=== PATIENT | male | born 1945 | race Hispanic/Latino ===

== ENCOUNTER 2021-11-28 12:53 | Emergency (ER) | payer SELFPAY ==
[2021-11-28] VITALS (10 sets, daily range): BP systolic 111–157; BP diastolic 70–91
[~2021-11-28] VITALS: Ht 167.6 cm; Wt 76.2 kg
[2021-11-28 13:57] LABS: URINE BILIRUBIN - DIPSTICK NEGATIVE (NEGATIVE); URINE BLOOD DIPSTICK TRACE-INTACT (NEGATIVE); URINE COLOR YELLOW; URINE GLUCOSE - DIPSTICK NEGATIVE (NEGATIVE); URINE KETONE NEGATIVE (NEGATIVE); URINE LEUK ESTERASE NEGATIVE (NEGATIVE); URINE PROTEIN - DIPSTICK NEGATIVE (NEG-TRACE); URINE SPECIFIC GRAVITY 1.025; URINE UROBILINOGEN - DIPSTICK 0.2 E.U./dL (0.2)
[2021-11-28 13:58] LABS: HEMATOCRIT 39.3 % (39.0-50.0); HEMOGLOBIN 13.2 g/dl (14.0-18.0); IMMATURE GRANULOCYTES 0.3 % (0.0-5.0); MEAN CELL VOLUME 92.5 fL CALC (80.0-100.0); MEAN CORPUSCULAR HGB 31.1 pG CALC (26.0-32.0); MEAN CORPUSCULAR HGB CONC 33.6 g/dL CAL (32.0-36.0); NEUT# 8.16 thou/uL (1.82-7.42); RED BLOOD COUNT 4.25 mill/uL (4.70-6.10); RED CELL DISTRI WIDTH 13.7 % (11.5-15.5)
[2021-11-28 13:59] LABS: URINE NITRITE - DIPSTICK NEGATIVE (Negative)
[2021-11-28 14:17] LABS: ALBUMIN 3.5 g/dL (3.2-5.0); BILIRUBIN, TOTAL 0.8 mg/dL (0.0-1.4); CREATININE 2.2 mg/dL (0.7-1.3); POTASSIUM 4.3 mmol/l (3.5-5.1); TOTAL PROTEIN 6.5 g/dL (6.3-8.2)
== END 2021-11-28 18:30 | disposition home or self-care (01) | DRG 726 ==
LOC: ED 12:53
PROVIDERS: Family Medicine
PROC: 0T9B70Z Drainage of Bladder with Drainage Device, Via Natural or Artificial Opening (ICD-10-PCS; principal; 2021-11-28)
DX: N40.1 Benign prostatic hyperplasia with lower urinary tract symptoms (principal); R39.11 Hesitancy of micturition; I10 Essential (primary) hypertension
CPT/HCPCS: Q9967

== ENCOUNTER 2021-12-06 15:54 | Emergency (ER) | payer SELFPAY ==
[~2021-12-06] VITALS: Ht 167.6 cm; Wt 76.3 kg
[2021-12-06] VITALS (7 sets, daily range): BP systolic 111–137; BP diastolic 65–80
[2021-12-06 17:12] LABS: URINE BILIRUBIN - DIPSTICK NEGATIVE (NEGATIVE); URINE BLOOD DIPSTICK LARGE (NEGATIVE); URINE COLOR BROWN; URINE GLUCOSE - DIPSTICK NEGATIVE (NEGATIVE); URINE KETONE NEGATIVE (NEGATIVE); URINE PROTEIN - DIPSTICK >=300 mg/dL (NEG-TRACE); URINE SPECIFIC GRAVITY >=1.030
[2021-12-06 17:14] LABS: URINE LEUK ESTERASE MODERATE (NEGATIVE); URINE NITRITE - DIPSTICK POSITIVE (Negative)
[2021-12-06 17:21] LABS: URINE RBC TNTC RBC/hpf (0-5); URINE WBC TNTC WBC/hpf (0-5)
[2021-12-06] MEDS ORDERED: PHENAZOPYRIDIN100 M1 PO (17:26)
[2021-12-06] MEDS ORDERED: KEFLEX500 MG PO (17:26)
--- NOTE | 2021-12-08 10:12 | NUR ---
NEW RX FOR CEFDINIR 300MG PO BID X7 DAYS CALLED IN TO [facility]. SPOKE WITH KENDRA YOUNG (NEXT OF KIN/LACE SEWER) PT DOES NOT SPEAK WELSH. EXPLAINED NEED FOR NEW ABX. INSTRUCTED TO STOP CEPHALEXIN AND START CEFDINIR. KENDRA VERBALIZED UNDERSTANDING.
== END 2021-12-06 17:56 | disposition home or self-care (01) | DRG 690 ==
LOC: ED 15:54
PROVIDERS: Nurse Practitioner
DX: N39.0 Urinary tract infection, site not specified (principal); R33.9 Retention of urine, unspecified; I10 Essential (primary) hypertension; B96.20 Unspecified Escherichia coli [E. coli] as the cause of diseases classified elsewhere; Z96.0 Presence of urogenital implants

== ENCOUNTER 2022-01-11 10:59 | Observation (INO) | payer SELFPAY ==
[~2022-01-11] VITALS: Ht 167.6 cm; Wt 74.8 kg
[~2022-01-11 10:59] MED LIST: CYMBALTA30 MG PO; KEFLEX500 MG PO; NAPROXEN375 MG PO; OMNI-PAC300 MG PO; PHENAZOPYRIDIN100 M1 PO; TAMSULOSIN HCL0.4 MG PO
--- NOTE | 2022-01-11 16:51 | NUR ---
PT ARRIVED ON UNIT @ 1426 TRANSPORTED VIA WC BY PACU STAFF THEN TRANSFERRED TO BED. ALERT AND ORIENTED, C/O ABD PAIN @ 03/18, CBI IN PROGRESS WITH ISRAEL RED-PINK DRAINAGE, DRAINAGE BAG SECURED FIRMLY TO RIGHT LEG, ORIENTED TO ROOM AND CALL ROGER, IVF INFUSING, SET UP FOR VITAL SIGNS MEASURING, SON AT BEDSIDE, SENIOR SAS PROGRAMMER NEEDED AND STAFF MEMBER PLAYED ROLE, WILL CONTINUE TO MONITOR.
[2022-01-11 17:31] VITALS: BP 153/85
--- NOTE | 2022-01-11 18:26 | NUR ---
PT VOMITTING AT THIS TIME, NO ANTIEMETIC ON ORDER OF NOW, DR CAROLINA NOTIFIED AND SAID HE WILL PLACE ORDERS.
[2022-01-11 18:53] VITALS: BP 146/76
[2022-01-11 19:00] VITALS: BP 146/76
--- NOTE | 2022-01-11 20:00 | NUR ---
PHYSICAL ASSESMENT COMPLETE. PT CURRENTLY DENIES PAIN OR DISCOMFORT. SCHEDULED MEDICATIONS AND PRN MEDICATION ADMINISTERED, SEE E-MAR. PT DENIES ANY NEEDS AT THIS TIME. TURP IRRIGATION RUNNING TO GRAVITY. PLAN OF CARE REVIEWED, PT DENIES QUESTIONS, VERBALIZES UNDERSTANDING. ITEMS WITHIN REACH, BED LOCKED IN LOW POSITION W/ BEDRAILS UP X2. CALL ROGER WITHIN REACH, AGREES TO CALL PRN.
--- NOTE | 2022-01-12 | NUR ---
RESTING IN BED WITH EYES CLOSED; NO APPARENT DISTRESS NOTED; TRIPLE LUMEN CATHETER RITCHIE DRAINING TO GRAVITY; NO COMPLAINTS OF PAIN; CALL LIGHT WITHIN REACH.
--- NOTE | 2022-01-12 03:57 | NUR ---
PT RESTING IN BED, NO SIGNS OF DISTRESS NOTED, RESP EVEN AND UNLABORED. PT VOICES NO NEEDS OR COMPLAINTS AT THIS TIME. TURP/IRRIAGATION CONTINUES. OUTPUT IS PRESENTLY PEACHED COLORED. CALL LIGHT WITHIN REACH.
[2022-01-12 04:00] VITALS: BP 133/76
[2022-01-12 04:41] VITALS: BP 133/76
[2022-01-12 05:47] LABS: HEMATOCRIT 36.6 % (39.0-50.0); IMMATURE GRANULOCYTES 0.2 % (0.0-5.0); MEAN CELL VOLUME 95.6 fL CALC (80.0-100.0); MEAN CORPUSCULAR HGB 31.3 pG CALC (26.0-32.0); MEAN CORPUSCULAR HGB CONC 32.8 g/dL CAL (32.0-36.0); NEUT# 6.91 thou/uL (1.82-7.42); RED BLOOD COUNT 3.83 mill/uL (4.70-6.10); RED CELL DISTRI WIDTH 13.3 % (11.5-15.5)
[2022-01-12 06:46] LABS: ANION GAP 8 (6-22 (CALC)); CARBON DIOXIDE 23 mmol/l (22-30); CHLORIDE 111 mmol/l (95-108); SODIUM 138 mmol/l (137-146)
[2022-01-12 06:51] LABS: BUN 12 mg/dL (8-23); BUN/CREATININE RATIO 17 (12-20 (CALC)); CREATININE 0.7 mg/dL (0.7-1.3); GFR FOR AFR.AMER. > 60 ML/MIN (>=60 (CALC)); GFR OTHER RACES > 60 ML/MIN (>=60 (CALC))
--- NOTE | 2022-01-12 07:15 | NUR ---
D/C [facility], DUE TO CLEAR OUTPUT PER DOCTORS ORDERS.
[2022-01-12 07:30] VITALS: BP 146/79
--- NOTE | 2022-01-12 08:00 | NUR ---
patient is a/ox3, able to make needs known to staff denies pain at this time. beninese speaking only.3mm perrla. clear speech. clear lung sounds. active bowel sounds. soft round abdomen. strong pulses. no edema present at this time. strong pulses. vitals are stable. churchill output is clear/peach, talking with Mohan on patient plan. saftey measures in place. call light in reach. will continue to monitor per hospital's policy.
--- NOTE | 2022-01-12 09:00 | NUR ---
DR. THURSTON STATED PATIENT IS ABLE TO GO HOME TODAY. NO CLOTS FORMED IN RITCHIE, PEACH TINT, RED-MAYO TINT TO OUTPUT. STATED THAT IS OKAY FOR HIM TO TAKE IT EASY GOING HOME, RITCHIE REMAINS IN PLACE.
--- NOTE | 2022-01-12 12:00 | NUR ---
PATIENT HAS FAMILY AT BEDSIDE
--- NOTE | 2022-01-12 13:31 | NUR ---
D/C PAPERWORK GIVEN, REVIEWED STATED HE UNDERSTOOD, FAMILY AT BEDSIDE, SON AND DAUGHTER IN LAW. IV REMOVED. REFUSED A WHEELCHAIR, RITCHIE IN PLACE. EMPTIED. EDUCATION ON THE RITCHIE.
== END 2022-01-12 13:33 | disposition home or self-care (01) | DRG 713 ==
LOC: ORM 10:59 → MS2 14:25
PROVIDERS: ADMIT Internal Medicine; ATTEND Urology
PROC: 0VB08ZZ Excision of Prostate, Via Natural or Artificial Opening Endoscopic (ICD-10-PCS; principal; 2022-01-11)
DX: N40.1 Benign prostatic hyperplasia with lower urinary tract symptoms (principal); N13.8 Other obstructive and reflux uropathy; R33.8 Other retention of urine; R39.11 Hesitancy of micturition; N30.80 Other cystitis without hematuria; I10 Essential (primary) hypertension
CPT/HCPCS: J0131; J1956